=== PATIENT | female | born 1955 | race Hispanic/Latino ===

== ENCOUNTER → 2016-11-12 | Outpatient (CLI) | payer BC | END | disposition home or self-care (01) | LOC: LAB.O 10:50 | PROVIDERS: ATTEND Internal Medicine Nephrology | DX: N18.4 Chronic kidney disease, stage 4 (severe) (principal) ==

== ENCOUNTER → 2016-11-12 | Outpatient (CLI) | payer BC, SELFPAY ==
--- NOTE | 2016-11-16 08:15 | US ---
EXAM DESCRIPTION: Renal CLINICAL HISTORY: 61 years, Female, CHRONIC KIDNEY DISEASE COMPARISON: None. FINDINGS: The right kidney measures 10.1 cm in length. There is no right-sided hydronephrosis or obstructing nephrolithiasis. There is no right renal cortical thinning or perinephric fluid. The left kidney measures 10.3cm in length. There is no left-sided hydronephrosis or obstructing nephrolithiasis. There is no left renal cortical thinning or perinephric fluid. There is a 4.4 cm round hypoechoic mass in the inferior pole of the left kidney which demonstrates some low-level internal blood flow and does not appear cystic. The bladder is not visualized. The abdominal aorta and IVC are not well visualized on this exam. IMPRESSION: 4.4 cm solid mass arising from the inferior pole of the left kidney. Neoplasm is not excluded. Renal protocol CT is recommended for further evaluation. Electronically signed by: Sergo Salazar MD 11/16/2016 8:15 AM CDT Workstation: [email or web address]
== END | disposition home or self-care (01) ==
LOC: US 10:43
PROVIDERS: ATTEND Internal Medicine Nephrology
DX: N18.4 Chronic kidney disease, stage 4 (severe) (principal)

== ENCOUNTER → 2017-01-21 | Outpatient (CLI) | payer BC | END | disposition home or self-care (01) | LOC: LAB.O 09:18 | PROVIDERS: ATTEND Internal Medicine Nephrology | DX: N18.4 Chronic kidney disease, stage 4 (severe) (principal) ==

== ENCOUNTER → 2017-04-13 | Outpatient (CLI) | payer BC | END | disposition home or self-care (01) | LOC: LAB.O 11:03 | PROVIDERS: ATTEND Internal Medicine Nephrology | DX: N18.4 Chronic kidney disease, stage 4 (severe) (principal) ==

== ENCOUNTER → 2017-07-15 | Outpatient (CLI) | payer BC | LOC: LAB.O 08:52 | PROVIDERS: ATTEND Internal Medicine Nephrology | DX: N18.4 Chronic kidney disease, stage 4 (severe) (principal) ==

== ENCOUNTER → 2017-08-17 | Outpatient (CLI) | payer BC | LOC: LAB.O 08:10 | PROVIDERS: ATTEND Internal Medicine Hematology & Oncology | DX: N18.9 Chronic kidney disease, unspecified (principal); D63.1 Anemia in chronic kidney disease ==

== ENCOUNTER → 2017-08-25 | Outpatient (CLI) | payer BC | LOC: LAB.O 08:17 | DX: N18.9 Chronic kidney disease, unspecified (principal); D63.1 Anemia in chronic kidney disease ==

== ENCOUNTER → 2017-09-01 | Outpatient (CLI) | payer BC | LOC: LAB.O 08:14 | PROVIDERS: ATTEND Internal Medicine Nephrology | DX: N18.4 Chronic kidney disease, stage 4 (severe) (principal); D63.1 Anemia in chronic kidney disease ==

== ENCOUNTER → 2017-09-08 | Outpatient (CLI) | payer BC | LOC: LAB.O 08:03 | PROVIDERS: ATTEND Nurse Practitioner Family | DX: N18.9 Chronic kidney disease, unspecified (principal); D63.1 Anemia in chronic kidney disease ==

== ENCOUNTER → 2017-09-14 | Outpatient (CLI) | payer BC | LOC: LAB.O 09:59 | PROVIDERS: ATTEND Internal Medicine Hematology & Oncology | DX: N18.9 Chronic kidney disease, unspecified (principal); D63.1 Anemia in chronic kidney disease ==

== ENCOUNTER → 2017-09-21 | Outpatient (CLI) | payer BC | END | disposition home or self-care (01) | LOC: LAB.O 09:51 | PROVIDERS: ATTEND Nurse Practitioner Family | DX: D63.1 Anemia in chronic kidney disease (principal); C80.1 Malignant (primary) neoplasm, unspecified ==

== ENCOUNTER → 2017-10-06 | Outpatient (CLI) | payer BC | LOC: LAB.O 08:10 | PROVIDERS: ATTEND Nurse Practitioner Family | DX: D63.1 Anemia in chronic kidney disease (principal) ==

== ENCOUNTER → 2017-10-13 | Outpatient (CLI) | payer BC | LOC: LAB.O 08:44 | PROVIDERS: ATTEND Nurse Practitioner Family | DX: N18.9 Chronic kidney disease, unspecified (principal); D63.1 Anemia in chronic kidney disease ==

== ENCOUNTER → 2017-11-30 | Outpatient (CLI) | payer BC | LOC: LAB.O 11:11 | PROVIDERS: ATTEND Internal Medicine Nephrology | DX: N18.4 Chronic kidney disease, stage 4 (severe) (principal) ==

== ENCOUNTER → 2018-07-27 | Outpatient (CLI) | payer BC ==
--- NOTE | 2018-07-27 10:49 | RAD ---
EXAM DESCRIPTION: Chest,2 Views CLINICAL HISTORY: ABNORMAL REACTION TO TB SCREENING COMPARISON: None TECHNIQUE: PA/lateral FINDINGS: Multilumen catheter on the right is seen with tip in the mid to upper superior vena caval region. Heart size is normal with normal pulmonary vascularity. No pleural effusion or pneumothorax. Lungs are clear with no consolidating infiltrate. Lateral view shows intact sternum and mild spurring in the mid and lower T-spine. IMPRESSION: No acute process is identified in the chest. 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
== END ==
LOC: RAD 08:51
PROVIDERS: ATTEND Internal Medicine Nephrology
DX: Z11.1 Encounter for screening for respiratory tuberculosis (principal)

== ENCOUNTER 2019-07-04 13:16 | Emergency (ER) | payer MEDICARE, BC ==
[2019-07-04] MEDS ORDERED: ONDANSETRON ODT 8 MG TAB SL ONE (13:31)
[2019-07-04] MEDS ORDERED: PROMETHAZINE HCL INJ 25 MG/ML VIAL IM ONE (13:37)
--- NOTE | 2019-07-04 14:04 | RAD ---
EXAM DESCRIPTION: Chest,2 Views CLINICAL HISTORY: 63 years Female, dialysis catheter removal COMPARISON: Radiographs the chest dated 07/27/2018. TECHNIQUE: PA and lateral radiographs of the chest were obtained. FINDINGS: Trachea is midline.The cardiomediastinal silhouette is normal in size. The pulmonary vasculature is within normal limits.The lungs are clear with no acute consolidation.No evidence of pleural effusions.No evidence of pneumothorax. IMPRESSION: No acute cardiopulmonary process. Electronically signed by: Kayley Nevarez MD 07/04/2019 2:03 PM [facility]
[2019-07-04] MEDS ORDERED: SODIUM CHLORIDE 0.9% 1000ML 500 ML IVS ONE (14:13)
--- NOTE | 2019-07-04 15:51 | ED.PDOC ---
History of Present Illness - General Chief Complaint: Post Op Problems Stated Complaint: nausea,dizziness,shakiness Time Seen by Provider: 07/04/19 13:30 Source: patient Exam Limitations: no limitations - History of Present Illness Initial Comments: the patient is a 63-year-old female presenting to the emergency room from the general surgeons clinic. Apparently a dialysis catheter was removed in clinic. This was followed by dizziness, headache and some nausea and vomiting. It was removed under local anesthesia. The surgeon reports minimal bleeding. No syncope but she did feel dizzy. No focal neurological changes. No chest pain. No real shortness of breath but she did feel weak. Operative site appears appropriate. Blood pressure is low normal. She did have dialysis earlier today. Timing/Duration: 1 hour Severity: moderate Improving Factors: nothing Worsening Factors: nothing Associated Symptoms: loss of appetite, malaise, nausea/vomiting Review of Systems - Review of Systems Constitutional: States: malaise, weakness - generalized EENTM: States: no symptoms reported Respiratory: States: no symptoms reported Cardiology: States: no symptoms reported Gastrointestinal/Abdominal: States: nausea, vomiting Genitourinary: States: no symptoms reported Musculoskeletal: States: no symptoms reported Skin: States: no symptoms reported Neurological: States: see HPI Endocrine: States: excessive sweating All other Systems: No Change from Baseline Past Medical History (General) - Patient Medical History Hx Stroke: No Hx Congestive Heart Failure: No Hx Hypertension: Yes Hx Diabetes: Yes - Vaccination History Hx Influenza Vaccination: Yes Hx Pneumococcal Vaccination: Yes - Social History Hx Tobacco Use: No Family Medical History - Family History Mother Family History: Unknown Living Status: Unknown Physical Exam - Physical Exam General Appearance: Alert, Ill Appearing Eye Exam: bilateral normal Ears, Nose, Throat: hearing grossly normal, normal pharynx Neck: full range of motion, supple Respiratory: lungs clear, normal breath sounds, no respiratory distress, no accessory muscle use Cardiovascular/Chest: normal peripheral pulses, regular rate, rhythm, no edema, other - operative site dressing is in place. No evidence of any undue swelling. No evideence of any significant leakage. Peripheral Pulses: radial,right: 2+, radial,left: 2+, dorsalis pedis,right: 2+, dorsalis pedis,left: 2+ Gastrointestinal/Abdominal: non tender, soft Rectal Exam: deferred Back Exam: no CVA tenderness, no vertebral tenderness Extremity: normal range of motion, non-tender, no pedal edema, normal capillary refill Neurologic: claim investigator II-XII nml as tested, alert, oriented x 3 Skin Exam: normal color - very mildly diaphhoretic initially Comments: Vital Signs - 24 hr 07/04/19 13:52 Temperature 98.2 F Pulse Rate [ 78 Right Brachial] Respiratory 20 Rate Blood Pressure 103/59 [Right Arm] O2 Sat by Pulse 98 Oximetry Progress - Progress Progress: 07/04/19 15:53 the patient's is 63-year-old female presenting with dizziness and nausea and vomiting after having had a dialysis catheter removed in clinic. This appears to most likely be a vasovagal response combined with mild dehydration from today's dialysis. the patient has received a small IV fluid bolus. She has received some Zofran and Phenergan for the nausea. She is resting more comfortably. CBC and chest x-ray are reassuring. Telemetry showing normal sinus rhythm. blood pressures have improved after the small IV fluid bolus. The patient will be allowed to go home. She does need to rest mostly today. ER warnings were given. [email or web address] [phone] 07/04/19 16:30 - Results/Orders Results/Orders: Laboratory Tests 07/04/19 07/04/19 13:32 14:25 WBC 5.8 RBC 3.46 L Hgb 10.7 L Hct 31.7 L MCV 91.8 MCH 31.0 MCHC 33.8 RDW 16.4 H Plt Count 180 MPV 8.3 Absolute Neuts (auto) 4.00 Absolute Lymphs (auto) 1.10 Absolute Monos (auto) 0.40 Absolute Eos (auto) 0.10 Absolute Basos (auto) 0.10 Neutrophils % 69.1 Lymphocytes % 19.9 L Monocytes % 7.6 Eosinophils % 2.2 Basophils % 1.2 POC Glucose 119 H telemetry shows normal sinus rhythm in the 70s. Departure - Departure Clinical Impression: Vasovagal reaction, Postoperative lightheadedness Disposition: Discharge to Home or Self Care Condition: Fair Departure Forms: ED Discharge - Pt. Copy, Patient Portal Self Enrollment Diet: diabetic diet Activity: increase activity as tolerated Referrals: [facility] [Primary Care Provider] - 1-2 Weeks Additional Instructions: the patient's is 63-year-old female presenting with dizziness and nausea and vomiting after having had a dialysis catheter removed in clinic. This appears to most likely be a vasovagal response combined with mild dehydration from today's dialysis. the patient has received a small IV fluid bolus. She has received some Zofran and Phenergan for the nausea. She is resting more comfortably. CBC and chest x-ray are reassuring. Telemetry showing normal sinus rhythm. blood pressures have improved after the small IV fluid bolus. The patient will be allowed to go home. She does need to rest mostly today. ER warnings were given.
[2019-07-04 16:51] VITALS: BP 128/55; TEMP 98.1; O2SAT 96
== END 2019-07-04 16:50 | disposition home or self-care (01) ==
LOC: ER 13:16
DX: R55 Syncope and collapse (principal); R11.2 Nausea with vomiting, unspecified; T88.8XXA Other specified complications of surgical and medical care, not elsewhere classified, initial encounter; I10 Essential (primary) hypertension; E11.9 Type 2 diabetes mellitus without complications; Z98.890 Other specified postprocedural states
CPT/HCPCS: 36415; 36416; 71046; 82948; 85025; J2550; J7030

== ENCOUNTER → 2019-11-29 | Outpatient (CLI) | payer MEDICARE, BC ==
--- NOTE | 2019-11-30 16:28 | MAM ---
EXAM DESCRIPTION: 3D Screening BILATERAL : Digital Mammography. CLINICAL HISTORY: 64 years Female ANNUAL SCREENING . No complaints. No personal or family history of breast cancer. Menarche age 15. Childbirth age 18. Menopause age unknown. No HRT. Lifetime risk of developing breast cancer (Tyrer-Cuzick model)(%): 2.3. COMPARISON: Baseline study at this facility.. No prior reports available. TECHNIQUE: Bilateral CC and MLO projection full-field images, digital tomosynthesis mammographic technique. Bilateral digital 2-D full-field MLO images. CAD available for 2-D images. FINDINGS: The breast parenchymal density pattern is: Heterogeneously dense breast tissue, which may obscure small masses. No skin thickening or nipple retraction. Superior posterior left skin mole marker. Axillary lymph nodes. Vascular calcifications. Solitary microcalcifications. Focal asymmetry in the upper inner quadrant of the anterior middle third of the right breast 3 cm and 5 cm from the nipple.. No new focal, stellate mass or density, focal asymmetry , and no suspicious microcalcifications left breast. IMPRESSION: BI-RADS CATEGORY: 0 - INCOMPLETE- Need additional imaging evaluation. RECOMMENDATIONS: FOLLOW-UP: Recall for additional imagin-D and tomosynthesis full Field LM images right breast. Directed right breast ultrasound.. Written communication concerning the IMPRESSION and Follow-up, will be mailed to the patient and referring health care provider. Electronically signed by: Saul Fragoso MD 11/30/2019 4:27 PM CDT
== END ==
LOC: MAMMO 11:03
PROVIDERS: ATTEND Internal Medicine Nephrology
DX: Z12.31 Encounter for screening mammogram for malignant neoplasm of breast (principal)

== ENCOUNTER → 2019-12-19 | Outpatient (CLI) | payer MEDICARE, BC ==
--- NOTE | 2019-12-20 10:20 | MAM ---
EXAM DESCRIPTION: 3D Diagnostic, Right (accession [id number]), Breast,Right (accession [id number]): Ultrasound CLINICAL HISTORY: 64 yearsFemaleABN MAMMO focal asymmetry right breast COMPARISON: Bilateral screening digital breast tomosynthesis November 28. TECHNIQUE: Right breast LM projection full-field images, digital tomosynthesis technique. Right breast 2-D digital full-field images: LM projection. CAD available for 2-D images.. Transcutaneous scanning of the right breast utilizing cordero-scale and Doppler modes. Scanning performed by the receiving specialist ; observation by Dr. Fragoso. FINDINGS: The breast parenchymal density pattern is: Heterogeneously dense breast tissue, which may obscure small masses. No skin thickening or nipple retraction Axillary lymph nodes. Vascular calcifications. Scattered solitary microcalcifications. Focal asymmetry not well seen on the study.. Ultrasound: Scanning of the region of interest middle third of the right breast upper inner quadrant. Mostly fibroglandular tissues. No dominant solid mass, no large calcifications. 2.7 mm cyst 4 cm from the nipple at 2:00. No overlying skin changes. IMPRESSION: Benign exam. BIRAD CATEGORY: 2 BENIGN FINDINGS. RECOMMENDATIONS: FOLLOW UP: Return to routine digital bilateral mammographic screening, one year interval from June 2019. Written communication explaining the IMPRESSION and follow-up, will be mailed to the patient and referring health care provider. The FINDINGS and the FOLLOW-UP plan were reviewed in person with the patient after the examination. According to the [employer], yearly mammograms are recommended starting at age 40 and continuing as long as a woman is in good health. Any breast change noted on a breast self-exam should be reported promptly to the patient's healthcare provider. Breast MRI is recommended for women with an approximately 20-25% or greater lifetime risk of breast cancer, including women with a strong family history of breast or ovarian cancer and women who have been treated for Hodgkin's disease. A negative mammographic report should not delay tissue diagnosis in patients with significant clinical history or physical findings. Extremely dense breast tissue limits the sensitivity of digital mammography. Electronically signed by: Saul Fragoso MD 12/20/2019 10:19 AM CDT
== END ==
LOC: MAMMO 10:42
PROVIDERS: ATTEND Nurse Practitioner Family
DX: R92.8 Other abnormal and inconclusive findings on diagnostic imaging of breast (principal)
CPT/HCPCS: 76641; 77065; G0279